=== PATIENT | female | born 1980 | race Asian ===

== ENCOUNTER 2017-05-30 09:58 | Emergency (ER) | payer BC ==
[~2017-05-30] VITALS: Ht 165.1 cm; Wt 126.1 kg
[2017-05-30 10:08] VITALS: TEMP 98.4
[2017-05-30 13:06] VITALS: BP 184/74
== END 2017-05-30 13:06 | disposition home or self-care (01) ==
LOC: ED 09:58
DX: S93.402A Sprain of unspecified ligament of left ankle, initial encounter (principal); X50.1XXA Overexertion from prolonged static or awkward postures, initial encounter; Y92.119 Unspecified place in children's home and orphanage as the place of occurrence of the external cause
CPT/HCPCS: 99283

== ENCOUNTER 2019-06-14 09:48 | Outpatient (CLI) | payer BC | END 2019-06-14 21:19 | disposition home or self-care (01) | LOC: LAB 09:48 | DX: E66.9 Obesity, unspecified (principal) | CPT/HCPCS: 82530 ==

== ENCOUNTER 2019-10-13 07:05 | Outpatient (CLI) | payer BC | END 2019-10-13 20:10 | disposition home or self-care (01) | LOC: RESP 07:05 | DX: M25.512 Pain in left shoulder (principal); M35.01 Sjogren syndrome with keratoconjunctivitis ==

== ENCOUNTER 2021-04-15 16:32 | Outpatient (CLI) | payer BC, OTHER | END 2021-04-15 19:07 | disposition home or self-care (01) | LOC: RAD 16:32 | PROVIDERS: ATTEND Nurse Practitioner Family | DX: S16.1XXA Strain of muscle, fascia and tendon at neck level, initial encounter (principal); Z09 Encounter for follow-up examination after completed treatment for conditions other than malignant neoplasm; Z86.16 Personal history of COVID-19 ==

== ENCOUNTER 2021-04-22 14:07 | Outpatient (CLI) | payer BC | END 2021-04-22 20:17 | disposition home or self-care (01) | LOC: US 14:07 | PROVIDERS: ATTEND Nurse Practitioner Family | DX: K11.20 Sialoadenitis, unspecified (principal); R59.0 Localized enlarged lymph nodes ==

== ENCOUNTER 2021-05-24 10:01 | Emergency (ER) | payer BC ==
[~2021-05-24] VITALS: Ht 165.1 cm; Wt 158.8 kg
[2021-05-24 11:44] LABS: PLATELET COUNT 287 K/uL (152-353)
[2021-05-24 11:52] LABS: POTASSIUM 3.9 mmol/L (3.6-5.2)
[2021-05-24 12:01] LABS: PARTIAL THROMBOPLASTIN TIME 28.5 SECONDS (24.5-33.6)
[2021-05-24 15:20] VITALS: BP 124/94; TEMP 98
== END 2021-05-24 15:22 | disposition short-term general hospital (02) ==
LOC: ED 10:01
PROVIDERS: Family Medicine
PROC: 0T9B70Z Drainage of Bladder with Drainage Device, Via Natural or Artificial Opening (ICD-10-PCS; principal; 2021-05-24)
DX: R09.02 Hypoxemia (principal); I26.99 Other pulmonary embolism without acute cor pulmonale; Z11.52 Encounter for screening for COVID-19
CPT/HCPCS: 36415; 36600; 51702; 80053; 81000; 82550; 82805; 83880; 84484; 85027; 85610; 85730; 87635; 94660; 94664; 96374; 99284; J1940; U0003

== ENCOUNTER 2021-06-12 10:52 | Outpatient (CLI) | payer BC ==
[2021-06-12 11:26] LABS: POTASSIUM 3.8 mmol/L (3.6-5.2)
== END 2021-06-12 20:05 | disposition home or self-care (01) ==
LOC: LABW 10:52
PROVIDERS: ATTEND Nurse Practitioner Primary Care
DX: R20.2 Paresthesia of skin (principal); R22.32 Localized swelling, mass and lump, left upper limb; M79.89 Other specified soft tissue disorders
CPT/HCPCS: 36415; 80053

== ENCOUNTER 2021-08-07 06:47 | Emergency (ER) | payer BC ==
[~2021-08-07] VITALS: Ht 165.1 cm; Wt 158.8 kg
[2021-08-07 06:56] VITALS: BP 159/98; TEMP 97.3
== END 2021-08-07 09:00 | disposition home or self-care (01) ==
LOC: ED 06:47
DX: Z86.718 Personal history of other venous thrombosis and embolism (principal); Z79.01 Long term (current) use of anticoagulants
CPT/HCPCS: 85610; 99283

== ENCOUNTER 2021-09-15 11:30 | Outpatient (CLI) | payer BC ==
[2021-09-15 12:04] LABS: PLATELET COUNT 225 K/uL (152-353)
== END 2021-09-15 19:15 | disposition home or self-care (01) ==
LOC: LABW 11:30
PROVIDERS: ATTEND Nurse Practitioner Family
DX: Z79.01 Long term (current) use of anticoagulants (principal); R07.89 Other chest pain
CPT/HCPCS: 36415; 80053; 82550; 82553; 82728; 84484; 85027; 85379; 85610; 86140

== ENCOUNTER 2021-09-17 08:47 | Outpatient (CLI) | payer BC, OTHER ==
[~2021-09-17] VITALS: Ht 165.1 cm; Wt 149.2 kg
== END 2021-09-17 18:57 | disposition home or self-care (01) ==
LOC: INF 08:47
PROVIDERS: ATTEND Family Medicine
DX: U07.1 COVID-19 (principal); Z23 Encounter for immunization
CPT/HCPCS: 96365; Q0247

== ENCOUNTER 2021-11-04 12:32 | Outpatient (CLI) | payer BC ==
[2021-11-04 12:53] LABS: PLATELET COUNT 226 K/uL (152-353)
== END 2021-11-04 19:12 | disposition home or self-care (01) ==
LOC: LABW 12:32
PROVIDERS: ATTEND Family Medicine
DX: R10.11 Right upper quadrant pain (principal)
CPT/HCPCS: 36415; 80053; 82150; 83690; 85027

== ENCOUNTER 2021-11-11 08:19 | Outpatient (CLI) | payer BC | END 2021-11-11 19:40 | disposition home or self-care (01) | LOC: US 08:19 | PROVIDERS: ATTEND Family Medicine | DX: R10.11 Right upper quadrant pain (principal) ==

== ENCOUNTER 2022-06-15 06:49 | Emergency (ER) | payer BC ==
[~2022-06-15] VITALS: Ht 165.1 cm; Wt 151.5 kg
[2022-06-15 06:54] VITALS: TEMP 98.4
[2022-06-15 07:56] LABS: PLATELET COUNT 220 K/uL (152-353)
[2022-06-15 08:01] LABS: POTASSIUM 4.1 mmol/L (3.6-5.2)
[2022-06-15 09:29] VITALS: BP 28/83
== END 2022-06-15 09:40 | disposition home or self-care (01) ==
LOC: ED 06:49
PROVIDERS: Emergency Medicine
DX: R23.4 Changes in skin texture (principal); I82.621 Acute embolism and thrombosis of deep veins of right upper extremity
CPT/HCPCS: 80053; 85027; 85610; 85730; 99283

== ENCOUNTER 2022-06-17 13:55 | Outpatient (CLI) | payer BC | END 2022-06-17 23:59 | disposition home or self-care (01) | LOC: RAD 13:55 | PROVIDERS: ATTEND Nurse Practitioner Family | DX: M25.521 Pain in right elbow (principal); Z79.899 Other long term (current) drug therapy ==

== ENCOUNTER 2022-06-30 07:52 | Outpatient (CLI) | payer BC | END 2022-06-30 20:56 | disposition home or self-care (01) | LOC: RESP 07:52 | PROVIDERS: ATTEND Nurse Practitioner Family | DX: M25.521 Pain in right elbow (principal); Z79.899 Other long term (current) drug therapy ==

== ENCOUNTER 2022-09-16 16:58 | Outpatient (CLI) | payer BC | END 2022-09-16 19:01 | disposition home or self-care (01) | LOC: LAB 16:58 | PROVIDERS: ATTEND Nurse Practitioner Family | DX: Z03.89 Encounter for observation for other suspected diseases and conditions ruled out (principal) | CPT/HCPCS: 36415; 85379 ==

== ENCOUNTER 2022-10-22 09:42 | Outpatient (CLI) | payer BC | END 2022-10-22 20:54 | disposition home or self-care (01) | LOC: MAMMO 09:42 | PROVIDERS: ATTEND Nurse Practitioner Primary Care | DX: Z12.31 Encounter for screening mammogram for malignant neoplasm of breast (principal) ==